=== PATIENT | male | born 1960 | race Caucasian/White ===

== ENCOUNTER 2017-11-17 15:28 | Emergency (ER) | payer OTHER ==
[2017-11-17 15:32] VITALS: BP 142/68; BMI 34.4
--- NOTE | 2017-11-17 16:22 | RAD ---
HISTORY: Left-sided chest pain, congestion, dizziness, cough Study: PA and lateral views of the chest Comparison:None Findings: No infiltrate, effusion or pneumothorax identified. The cardiac and mediastinal contours are within n ormal limits. The soft tissues are unremarkable. IMPRESSION: 1. No acute cardiopulmonary abnormality. Reported By:
--- NOTE | 2017-11-17 16:34 | DR.GENAD ---
HPI - PCP Primary Care Physician: Tejas - HPI Comment HPI Comment: PATIENT IS WEAK, FATIGUE, DIZZY. HAVING DIARRHEA THAT IS RESOLVING. HIS CONDITION IS GETTING WORSE. - Complaint/Symptoms Chief Complaint Doctors Comments: FEVER, COUGH, CONGESTION TIMES ONE WEEK. Chief Complaint:: PT. C/O PAIN IN LEFT SIDE, CHEST CONGESTION, DIZZINESS, COUGH , NASAL CONGESTION, DIARRHEA, AND FATIGUE. - Nurses notes reviewed Nurses Notes Review: Yes - Source History Provided: Patient - Mode of Arrival Mode of Arrival: Ambulatory - Timing Onset of Chief Complaint: 11/10/17 Came on: Suddenly - Duration Duration: Constant Duration: Days - Severity Severity: Moderate PMH - PMH Past Medical History: Yes Past Medical History: Depression, Diabetes, Dyslipidemia, Hypertension, Hypothyroidism Past Surgical History: No Surgical History: No History - Family History History of Family Medical Conditions: No - Social History Does patient currently use any type of tobacco product: Yes Have you used tobacco products in the last 12 months: Yes Type of Tobacco Use: Cigarettes Does any household member use tobacco: No Alcohol Use: Occasionally Do you use any recreational Drugs:: No Lives With: Family Lives Where: Home - infectious screening In the last 2 months have you had wt loss of >10#?: NO Have you had fever, night sweats or hemotysis?: No Have you traveled outside the country in the last 6 months?: No Isolation: Standard ROS - Review of Systems Constitutional: Weakness, Fatigue. negative: Chills, Fever Eyes: No Symptoms Reported. negative: Eye Pain, Discharge ENTM: Nose Congestion. negative: Ear Pain, Nose Discharge, Throat Pain Respiratoy: Productive Cough, Short of Breath, Wheezing. negative: Hemoptysis Genitourinary: No Symptoms Reported Neurological: Headache, Weakness, Dizziness Musculoskeletal: Muscle Pain Integumentary: No Symptoms Reported Hematologic/Lymphatic: No Symptoms Reported Endocrine: No Symptoms Reported All Other Systems: Reviewed and Negative PE - Vital Signs Vitals: Temperature 97.3 F Pulse Rate 93 Respiratory Rate 20 Blood Pressure [Right Arm] 148/86 Blood Pressure 142/68 O2 Sat by Pulse Oximetry 97 - General Limitations: No Limitations General Appearance: Alert - Head Head Exam: Normal Inspection - Eyes Eye exam: Normal Appearance - ENT ENT Exam: Normal External Ear Exam External Ear Exam: Normal External Inspection TM/Canal Exam: Bilateral Normal Nose Exam: Normal Nose Exam Mouth Exam: Normal Inspection Throat Exam: Tonsillar Erythema - Neck Neck Exam: Normal Inspection - Chest Chest Inspection: Symmetric Chest Wall Rise - Respiratory Respiratory Exam: Normal Lung Sounds Bilat Respiratory Exam: Bilateral Rhonchi, Left Rhonchi, Lower Rhonchi - Cardiovascular Cardiovascular Exam: Regular Rate, Normal Rhythm, Normal Heart Sounds - Abdominal Exam Abdominal Exam: Normal Bowel Sounds, Soft. negative: Tenderness - Extremities Extremities Exam: Normal Inspection - Back Back Exam: Normal Inspection - Neurologic Neurological Exam: Alert, Oriented X3 - Psychiatric Psychiatric Exam: Normal Affect, Normal Mood - Skin Skin Exam: Normal Color MDM - Differential Diagnosis Differential Diagnosis: PNEUMONIA, BRONCHITIS, DIARRHEA, Course - Treatment Treatment: SEE ORDERS. IM TORADOL AND ROCEPHIN AND PO TESSALIN PEERLS GIVEN IN ED. - Education/Counseling Education/Counseling: Patient, Education Educated On: Treatment, Diagnosis, Needs for Follow Up ROR - Labs Reviewed Laboratory Results Reviewed?: Yes Result Diagrams: 11/17/17 16:41 11/17/17 16:41 Laboratory: WBC 13.0 X10^3/uL (3.6-10.0) H 11/17/17 16:41 RBC 4.90 X10^6/uL (4.7-6.0) 11/17/17 16:41 Hgb 14.6 g/dL (13.5-18.0) 11/17/17 16:41 Hct 42.4 % (42.0-54.0) 11/17/17 16:41 MCV 86.5 fL (80.0-100.0) 11/17/17 16:41 MCH 29.8 pg (27.0-34.0) 11/17/17 16:41 MCHC 34.5 g/dL (33.0-35.0) 11/17/17 16:41 RDW 13.5 % (11.6-16.5) 11/17/17 16:41 Plt Count 319 X10^3/uL (150.0-450.0) 11/17/17 16:41 MPV 8.4 fL (7.4-11.0) 11/17/17 16:41 Neut % (Auto) 79.0 % (42.0-75.0) H 11/17/17 16:41 Lymph % (Auto) 12.9 % (21.0-51.0) L 11/17/17 16:41 [place] % (Auto) 6.6 % (0.0-13.0) 11/17/17 16:41 Eos % (Auto) 0.5 % (0.9-2.9) L 11/17/17 16:41 Baso % (Auto) 1.0 % (0.2-1.0) 11/17/17 16:41 Neut # (Auto) 10.3 x10^3/uL (2.2-4.8) H 11/17/17 16:41 Lymph # (Auto) 1.7 X10^3/uL (1.3-2.9) 11/17/17 16:41 [place] # (Auto) 0.9 x10^3/uL (0.3-0.8) H 11/17/17 16:41 Eos # (Auto) 0.1 x10^3/uL (0.0-0.2) 11/17/17 16:41 Baso # (Auto) 0.1 X10^3/uL (0.0-0.1) 11/17/17 16:41 Absolute Nucleated RBC 0.0 /100WBC 11/17/17 16:41 Sodium 140 mmol/L (136-145) 11/17/17 16:41 Corrected Sodium 147 mmol/L (136-145) H 11/17/17 16:41 Potassium 4.9 mmol/L (3.5-5.1) 11/17/17 16:41 Chloride 103 mmol/L (98-107) 11/17/17 16:41 Carbon Dioxide 27.3 mmol/L (21-32) 11/17/17 16:41 BUN 13 mg/dL (7-18) 11/17/17 16:41 Creatinine 1.11 mg/dL (0.70-1.30) 11/17/17 16:41 Est GFR (MDRD) Af Amer > 60 (>60) 11/17/17 16:41 Est GFR (MDRD) Non-Af > 60 (>60) 11/17/17 16:41 Glucose 402 mg/dL (65-99) H 11/17/17 16:41 Calcium 8.5 mg/dL (8.5-10.1) 11/17/17 16:41 Corrected Calcium 9.3 mg/dL (8.5-10.1) 11/17/17 16:41 Total Bilirubin 0.20 mg/dL (0.2-1.0) 11/17/17 16:41 AST 11 Units/L (15-37) L 11/17/17 16:41 ALT 17 Units/L (12-78) 11/17/17 16:41 Alkaline Phosphatase 81 Units/L (46-116) 11/17/17 16:41 Total Protein 7.5 g/dL (6.4-8.2) 11/17/17 16:41 Albumin 3.0 g/dL (3.4-5.0) L 11/17/17 16:41 Globulin 4.5 g/dL (2.5-4.5) 11/17/17 16:41 Albumin/Globulin Ratio 0.7 Ratio (1.1-2.1) L 11/17/17 16:41 - XRAY XRAY Interpreted by: Radiologist XRAY Findings: REPORT DISCUSS WITH PATIENT. - Diagnosis Discharge Problem: Bronchitis - Discharge Plan Disposition: 01 HOME, SELF-CARE Condition: Stable Prescriptions: Benzonatate [TESSALON PERLES *] 200 mg PO TID PRN #30 cap PRN Reason: Cough Levofloxacin [LEVAQUIN TAB 500 MG *] 500 mg PO Q24H #7 tab - Follow ups/Referrals Follow ups/Referrals: [facility],None [Primary Care Provider] - 3 days - Instructions Instructions: Acute Bronchitis, Adult Additional Instructions: RETURN TO ED IF WORSE.
[2017-11-17 16:57] LABS: BASOPHILS # (AUTO) 0.1 X10^3/uL (0.0-0.1); EOSINOPHILS # (AUTO) 0.1 x10^3/uL (0.0-0.2); EOSINOPHILS % (AUTO) 0.5 % (0.9-2.9); HEMATOCRIT 42.4 % (42.0-54.0); HEMOGLOBIN 14.6 g/dL (13.5-18.0); LYMPHOCYTES # (AUTO) 1.7 X10^3/uL (1.3-2.9); LYMPHOCYTES % (AUTO) 12.9 % (21.0-51.0); MEAN CORPUSCULAR HEMOGLOBIN 29.8 pg (27.0-34.0); MEAN CORPUSCULAR HGB CONC 34.5 g/dL (33.0-35.0); MEAN CORPUSCULAR VOLUME 86.5 fL (80.0-100.0); MEAN PLATELET VOLUME 8.4 fL (7.4-11.0); MONOCYTES # (AUTO) 0.9 x10^3/uL (0.3-0.8); MONOCYTES % (AUTO) 6.6 % (0.0-13.0); NEUTROPHILS # (AUTO) 10.3 x10^3/uL (2.2-4.8); PLATELET COUNT 319 X10^3/uL (150.0-450.0); RED CELL DISTRIBUTION WIDTH 13.5 % (11.6-16.5)
[2017-11-17 17:04] LABS: ALANINE AMINOTRANSFERASE 17 Units/L (12-78); ALKALINE PHOSPHATASE 81 Units/L (46-116); ASPARTATE AMINO TRANSFERASE 11 Units/L (15-37); BLOOD UREA NITROGEN 13 mg/dL (7-18); CALCIUM 8.5 mg/dL (8.5-10.1); CARBON DIOXIDE 27.3 mmol/L (21-32); CHLORIDE 103 mmol/L (98-107); COR CA(FOR HYPOALB) 9.3 mg/dL (8.5-10.1); COR NA(FOR HYPERGLY) 147 mmol/L (136-145); CREATININE 1.11 mg/dL (0.70-1.30); SODIUM 140 mmol/L (136-145); TOTAL PROTEIN 7.5 g/dL (6.4-8.2); eGFR BLACK RACES > 60 (>60); eGFR NON BLACK RACES > 60 (>60)
[2017-11-17] MEDS ORDERED: TORADOL 60 MG VIAL IM ONE (17:13)
[2017-11-17] MEDS ORDERED: ROCEPHIN VIAL 1 GM IM ONE (17:13)
[2017-11-17] MEDS ORDERED: ROCEPHIN VIAL 1 GM ONE (17:18)
[2017-11-17] MEDS ORDERED: TORADOL 60 MG VIAL ONE (17:18)
[2017-11-17] MEDS ORDERED: XYLOCAINE 1 % (PLAIN) ONE (17:18)
[2017-11-17] MEDS ORDERED: TESSALON PERLES PO ONE (17:42)
== END 2017-11-17 17:54 | disposition home or self-care (01) ==
LOC: ER 15:48
DX: J40 Bronchitis, not specified as acute or chronic (principal)
CPT/HCPCS: 36415; 71046; 80053; 85025; 96372; 99282; 99283; J0696; J1885; J2001